=== PATIENT | male | born 1985 | race Caucasian/White ===

== ENCOUNTER 2022-03-07 22:05 | Emergency (ER) | payer OTHER, SELFPAY ==
[2022-03-07 22:07] VITALS: BP 174/98; PULSE 96; RESP 18; TEMP 36.4; O2SAT 100
--- NOTE | 2022-03-07 23:14 | ED.EYEPROB ---
HPI - Eye Problem General Chief complaint: Eye Problems Stated complaint: Foreign Body Right Eye Time Seen by Provider: 03/07/22 22:39 Source: patient Mode of arrival: ambulatory Limitations: no limitations History of Present Illness HPI Narrative: Patient presents to the emergency department for right eye irritation and feelings of foreign body. 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 Reports he is unsure if he got a piece of metal in his right eye a couple of days ago at work. He has had ongoing irritation and tearing. Denies visual changes. Related Data Allergies Allergy/AdvReac Type Severity Reaction Status Date / Time No Known Allergies Allergy Verified 03/07/22 22:21 Review of Systems Review of Systems: CONSTITUTIONAL: Denies fever EYES: Reports redness and tearing. Denies visual changes All systems reviewed & are unremarkable except as noted in HPI and below PMFSH Past Medical History Medical History (Updated 03/07/22 @ 23:19 by Shona Macias PA-C) No active medical problems Social History Social History (Updated 03/07/22 @ 23:16 by Shona Macias PA-C) Smoking status: Current every day smoker Exam Narrative: GENERAL: Well-appearing, well-nourished, and in no acute distress. HEAD: Normocephalic, atraumatic. EYES: PERRLA and EOMI. Eyelid everted, no foreign bodies noted. Positive fluorescein stain uptake in the right eye with a small corneal abrasion noted. Visual acuity 20/25 right, 20/20 left. EXTREMITIES: Normal range of motion. No edema. SKIN: Warm, dry, no rash. NEURO: No focal deficits. Alert and oriented x3. PSYCH: Normal mood and affect Course Vital Signs Vital signs: Vital Signs Temperature 97.6 F 03/07/22 22:07 Pulse Rate 96 03/07/22 22:07 Respiratory Rate 18 03/07/22 22:07 Blood Pressure 174/98 H 03/07/22 22:07 Pulse Oximetry 100 03/07/22 22:07 Oxygen Delivery Room Air 03/07/22 22:07 Temperature 97.6 F 03/07/22 22:07 Pulse Rate 96 03/07/22 22:07 Respiratory Rate 18 03/07/22 22:07 Blood Pressure 174/98 H 03/07/22 22:07 Pulse Oximetry 100 10/25/22 22:07 Oxygen Delivery Room Air 03/07/22 22:07 MDM - Eye Problem MDM Narrative Medical decision making narrative: Patient presents emergency department for right eye irritation and redness. Ongoing over the last couple of days. No foreign bodies noted on exam. No concerning visual changes. He does have a small corneal abrasion. Will be started on topical antibiotic. He is to follow-up with an dirt contractor. He was given warnings to return to the ER Critical Care Time Critical Care Time Critical Care Time: No Discharge Plan Discharge Clinical Impression: Corneal abrasion Qualifiers: Encounter type: initial encounter Laterality: right Qualified Code(s): S05.01XA - Injury of conjunctiva and corneal abrasion without foreign body, right eye, initial encounter Patient Disposition: Home, Self-Care Condition: Stable Instructions: Antibiotic Form, Corneal Abrasion (ED) Additional Instructions: Return to the emergency department if you experience fever, redness and swelling of your eye, visual changes, or any other symptoms that are concerning to you Apply 1 cm ribbon to the right eye 4 times daily for the next 5 days Follow-up with [facility] Follow-up/Referrals: PHYSICIAN,PROSTHETICS LAB TECHNICIAN [Primary Care Provider] -
[2022-03-07] MEDS: ERYTHROMYCIN OPHTH OINTMENT 1 GM TUBE 1 APPLIC RIGHT EYE (23:16)
[2022-03-07 23:30] VITALS: BP 150/90; PULSE 88; RESP 18; O2SAT 98
== END 2022-03-07 23:31 | disposition home or self-care (01) ==
LOC: ANHED 23:27
PROVIDERS: Emergency Provider Emergency Medicine
DX: S05.01XA Injury of conjunctiva and corneal abrasion without foreign body, right eye, initial encounter (principal); F17.210 Nicotine dependence, cigarettes, uncomplicated; X58.XXXA Exposure to other specified factors, initial encounter
CPT/HCPCS: 99283; A9270

== ENCOUNTER 2023-07-19 03:17 | Emergency (ER) | payer OTHER, SELFPAY ==
[2023-07-19 03:19] VITALS: BP 170/86; PULSE 90; RESP 16; TEMP 36.2; O2SAT 100
[2023-07-19 03:51] VITALS: BP 150/89; PULSE 81; RESP 18; O2SAT 99
[2023-07-19 04:21] LABS: Basophils Absolute Auto 0.1 K/mm3 (0.0-0.1); Basophils Percent Auto 0.6 % (0.2-1.2); Eosinophils Absolute Auto 0.3 K/mm3 (0-0.3); Eosinophils Percent Auto 3.1 % (0-4.4); Hematocrit 42.4 % (42.0-52.0); Hemoglobin 15.1 g/dL (14.0-18.0); Immature Granulocyte Absolute 0.02 K/mm3 (0.00-0.031); Immature Granulocyte Percent A 0.2 % (0-0.5); Lymphocytes Absolute Auto 2.22 K/mm3 (0.9-3.2); Lymphocytes Percent Auto 27.7 % (18.3-44.2); Mean Corpuscular HGB Conc 35.6 g/dl (32-36); Mean Corpuscular Hemoglobin 32.3 pg (26-34); Mean Corpuscular Volume 90.8 fl (80-100); Monocytes Absolute Auto 0.7 K/mm3 (0.1-0.6); Neutrophils Absolute Auto 4.8 K/mm3 (1.3-6.7); Neutrophils Percent Auto 59.4 % (45.5-73.1); Platelet Count Result 335 k/mm3 (150-375); Red Blood Count 4.67 M/mm3 (4.6-6.20); Red Cell Distribution Width 12.2 % (11.5-14.5)
[2023-07-19 04:34] LABS: Alanine Aminotransferase 19 U/L (6-50); Albumin Level 4.3 g/dL (3.5-5.1); Alkaline Phosphatase 78 U/L (38-126); Anion Gap 7 mmol/L (8-16); Aspartate Amino Transferase 45 U/L (17-59); Bilirubin,Total 0.3 mg/dL (0.2-1.3); Blood Urea Nitrogen 17 mg/dL (9-20); Carbon Dioxide 28 mmol/L (22-30); Chloride 105 mmol/L (98-107); Estimated CRCL calculation 117 ml/min; Estimated Glomerular Filt Rate > 60; Glucose 102 mg/dL (65-110); Potassium 4.1 mmol/L (3.4-5.0); Sodium 140 mmol/L (137-145)
--- NOTE | 2023-07-19 04:50 | ED.GENADULT ---
HPI - General Adult General Chief complaint: Recheck/Abnormal Lab/Rx Stated complaint: hypertension Time Seen by Provider: 07/19/23 03:42 History of Present Illness HPI narrative: Patient is a 38-year-old male who presents to the emergency department this evening complaining of an elevated blood pressure. Patient states that recently he has not been feeling well which prompted him to check his blood pressure and has gotten 2 or 3 different elevated blood pressure readings. Patient states that he does not believe he was ever told that he has high blood pressure and has never taking any medications for blood pressure. Patient does not currently have a primary care physician. He is currently denying any symptoms including chest pain, shortness of breath, headaches, dizziness, lightheadedness, focal weakness, numbness and tingling, nausea or vomiting. He also denies any dysuria or hematuria. There are no other modifying, alleviating, or precipitating factors at this time. Related Data Allergies Allergy/AdvReac Type Severity Reaction Status Date / Time No Known Allergies Allergy Verified 07/19/23 03:52 Review of Systems Review of Systems: All systems are reviewed and are negative unless stated otherwise in the HPI. [facility] Past Medical History Medical History No active medical problems Social History Social History Smoking status: Current every day smoker Comments Denies any significant past medical or surgical history, denies any significant family history and denies any illicit drug use or alcohol abuse. Exam Narrative: General: Alert, awake, afebrile, in no acute distress. HEENT: PERRL, no rhinorrhea, no post nasal drip, oropharynx clear. Neck: Trachea midline, no JVD, no lymphadenopathy. Cardiovascular: Regular rate and rhythm, no murmurs, rubs or gallops, no peripheral edema. Respiratory: Clear to auscultation bilaterally, no tachypnea, no wheezing, no rhonchi, no rubs, no respiratory distress. Abdomen: Soft, nontender, nondistended, no rebound, no guarding, no peritoneal signs. Musculoskeletal: No joint swelling or deformity, normal muscle tone. Skin: No rashes or petechia, no signs of infection. Psychiatric: Alert and oriented, normal behavior and judgment for situation. Neurological: Alert and oriented to person, place, and time. Follows all commands. No focal deficits, speech is clear and fluent. Course Vital Signs Vital signs: Vital Signs Temperature 97.1 F L 07/19/23 03:19 Pulse Rate 90 07/19/23 03:19 Respiratory Rate 16 07/19/23 03:19 Blood Pressure 170/86 H 07/19/23 03:19 Pulse Oximetry 100 07/19/23 03:19 Oxygen Delivery Room Air 07/19/23 03:19 Temperature 97.1 F L 07/19/23 03:19 Pulse Rate 70 07/19/23 05:04 Respiratory Rate 18 07/19/23 05:04 Blood Pressure 123/75 07/19/23 05:04 Pulse Oximetry 98 07/19/23 05:04 Oxygen Delivery Room Air 07/19/23 03:19 Medical Decision Making MDM Narrative Medical decision making narrative: The patient was evaluated by myself in the emergency department. History is obtained from patient who is an independent historian and physical exam was performed. External medical records were reviewed at this time. IV was established and pertinent tests were ordered. Laboratory results obtained revealing no acute process. Differential diagnosis considerations include hypertensive urgency versus emergency. Comorbidities impacting this visit include none. I have evaluated and discussed social determinants of health with the patient that could potentially impact subsequent diagnosis and treatment plans. On repeat assessment of the patient, reevaluation revealed that the patient is doing well and is in no acute distress. Patient symptoms have remained stable since he arrived to our emergency department. Repeat vital
[2023-07-19 05:04] VITALS: BP 123/75; PULSE 70; RESP 18; O2SAT 98
== END 2023-07-19 05:28 | disposition home or self-care (01) ==
PROVIDERS: Emergency Provider Emergency Medicine
DX: R03.0 Elevated blood-pressure reading, without diagnosis of hypertension (principal); F17.200 Nicotine dependence, unspecified, uncomplicated
CPT/HCPCS: 36415; 80053; 85025; 99283